=== PATIENT | male | born 1930 | race Caucasian/White ===

== ENCOUNTER 2016-07-21 08:39 | Day surgery (SDC) | payer MEDICARE, OTHER ==
[~2016-07-21] VITALS: Ht 170.2 cm; Wt 73.6 kg
[~2016-07-21 08:39] MED LIST: 0.9% SODIUM CHLORIDE 10 ML SYRINGE IVP ONE; 0.9% SODIUM CHLORIDE 10 ML SYRINGE IVP PRN; ASPI81 PO; FAMO20 PO; MAGN250T29 PO; METOPROLOL TARTRATE 50 MG TABLET PO ONE; MULT-665 PO; SIMV-259 PO; TAMS0.4C32 PO; TELM20 PO; TRUBIOTICS PO; VITAD1000 PO
[2016-07-21 09:16] LABS: ANION GAP 6 mmol/L (8-16); CALCIUM, TOTAL 9.1 mg/dL (8.8-10.5); CARBON DIOXIDE 30 mmol/L (22-29); CHLORIDE 108 mmol/L (98-107); POTASSIUM 4.7 mmol/L (3.5-5.1); SODIUM SERUM 144 mmol/L (136-145); UREA NITROGEN, BLOOD 28 mg/dL (7-18)
[2016-07-21 09:26] LABS: CREATININE 1.13 mg/dL (0.60-1.30); GLOMERULAR FILTR. RATE CALC > 60 mL/min (>60)
[2016-07-21] MEDS ORDERED: NITROGLYCERIN 400 MCG/SUBLINGUAL SPRAY 4.9 GM BOTTLE SL ONE (10:17)
[2016-07-21] MEDS ORDERED: METOPROLOL TARTRATE 5 MG/5 ML VIAL ONE (10:17)
[2016-07-21] MEDS ORDERED: IOVERSOL 350 MG/ML 100 ML VIAL ONE (10:19)
[2016-07-21] MEDS ORDERED: SODIUM CHLORIDE 0.9% 100 ML ONE (10:19)
== END 2016-07-21 11:45 | disposition home or self-care (01) ==
LOC: SDS 08:39 → EDSTATUS 10:30 → SDS 11:45
PROVIDERS: ATTEND Internal Medicine Cardiovascular Disease
DX: I25.10 Atherosclerotic heart disease of native coronary artery without angina pectoris (principal); I67.2 Cerebral atherosclerosis; I27.2 Other secondary pulmonary hypertension; I34.0 Nonrheumatic mitral (valve) insufficiency; I07.1 Rheumatic tricuspid insufficiency; I73.9 Peripheral vascular disease, unspecified; N40.0 Benign prostatic hyperplasia without lower urinary tract symptoms; K57.90 Diverticulosis of intestine, part unspecified, without perforation or abscess without bleeding; F10.21 Alcohol dependence, in remission; Z87.891 Personal history of nicotine dependence; Z90.49 Acquired absence of other specified parts of digestive tract; Z98.890 Other specified postprocedural states
CPT/HCPCS: 36415; 70450; 75574; 80048; 93005; J7050; Q9967; J3490